=== PATIENT | female | born 1955 | race Caucasian/White ===

== ENCOUNTER 2020-10-31 06:59 | Outpatient (CLI) | payer MEDICARE | END 2020-10-31 23:59 | disposition home or self-care (01) | LOC: ROC 06:59 | PROVIDERS: ATTEND Radiology Radiation Oncology | DX: C52 Malignant neoplasm of vagina (principal) | CPT/HCPCS: G0463 ==

== ENCOUNTER → 2020-12-19 | Outpatient (CLI) | payer MEDICARE ==
[~2020-12-19] MED LIST: ALIR75PE SC; AMLO-150 PO; CARV-39 PO; CITA40TA12 PO; CLON0.1T22 PO; CLOP75TA52 PO; INSU100V8 SQ; LEVO25TA4 PO; MULT-658 PO; OLME1TAB22 PO; ONDA4TAB13 SL; SEVE800T8 PO
== END | disposition home or self-care (01) ==
LOC: RAD 15:15
PROVIDERS: ATTEND Nurse Practitioner Acute Care
DX: R06.02 Shortness of breath (principal); N95.0 Postmenopausal bleeding; C52 Malignant neoplasm of vagina; I77.0 Arteriovenous fistula, acquired; R19.00 Intra-abdominal and pelvic swelling, mass and lump, unspecified site; C51.9 Malignant neoplasm of vulva, unspecified; Z51.11 Encounter for antineoplastic chemotherapy; Z51.0 Encounter for antineoplastic radiation therapy; I51.7 Cardiomegaly
CPT/HCPCS: 36415; 71046; 86900